=== PATIENT | male | born 1950 | race Caucasian/White ===

== ENCOUNTER → 2020-07-16 | Outpatient (CLI) | payer MEDICARE, OTHER | END | disposition home or self-care (01) | LOC: CVU 14:10 | PROVIDERS: ATTEND Internal Medicine Hematology & Oncology | DX: C81.90 Hodgkin lymphoma, unspecified, unspecified site (principal); I08.2 Rheumatic disorders of both aortic and tricuspid valves; R59.0 Localized enlarged lymph nodes | CPT/HCPCS: C8929; Q9957 ==